=== PATIENT | male | born 1940 | race Caucasian/White ===

== ENCOUNTER 2024-06-24 21:56 | Inpatient (IN) | payer MEDICARE, OTHER ==
[~2024-06-24] VITALS: Ht 165.1 cm; Wt 80.7 kg
[2024-06-24 22:12] VITALS: PULSE 83; RESP 12; O2SAT 92
[2024-06-24] MEDS: ONDANSETRON HCL 4 MG/2 ML VIAL IV ONE (22:40)
[2024-06-24] MEDS: SODIUM CHLORIDE 0.9% 1,000 ML IV ONE (22:41)
[2024-06-24] MEDS: MORPHINE SULFATE 4 MG/ML SYR/VIAL IV ONE (22:41)
[2024-06-24 22:45] LABS: Basophils # (auto) 0.1 10 ^3/uL (0-0.2); Basophils % (auto) 0.6 % (0.0-2.0); Eosinophils # (auto) 0.2 10 ^3/uL (0-0.8); Eosinophils % (auto) 1.9 % (0.0-7.0); Hematocrit 35.6 % (41.0-53.0); Hemoglobin 12.2 g/dL (13.5-17.5); Lymphocytes # (auto) 0.9 10 ^3/uL (0.4-5.4); Lymphocytes % (auto) 11.1 % (10.0-50.0); Mean Corpuscular Hemoglobin 31.8 pg (28.0-32.0); Mean Corpuscular Hgb Conc. 34.3 g/dL (32.0-36.0); Mean Corpuscular Volume 92.6 fL (80.0-100.0); Monocytes # (auto) 0.8 10 ^3/uL (0-1.3); Neutrophils # (auto) 6.5 10 ^3/uL (1.6-8.6); Neutrophils % (auto) 77.4 % (37.0-80.0); Platelet Count (auto) 225 10^3/uL (140-450); Red Blood Cells 3.84 10^6/uL (4.5-5.90); White Blood Cell 8.3 10^3/uL (4.4-10.8)
[2024-06-24 23:03] LABS: Alanine Aminotransferase 19 U/L (7-40); Albumin 3.9 g/dL (3.2-4.8); Alkaline Phosphatase 55 U/L (46-116); Anion Gap 7 (5-15); Aspartate Aminotransferase 25 U/L (13-40); BUN/Creatinine Ratio 10.9 (10.0-20.0); Blood Urea Nitrogen 15 mg/dL (9-23); Calcium 9.1 mg/dL (8.7-10.4); Carbon Dioxide 22 mmol/L (20-31); Chloride 110 mmol/L (98-107); Glucose 149 mg/dL (74-106); Potassium 3.8 mmol/L (3.5-5.1); Sodium 139 mmol/L (136-145)
[2024-06-24 23:04] LABS: Bilirubin, Total 0.4 mg/dL (0.2-1.0); Total Protein 5.9 g/dL (5.7-8.2)
[2024-06-24] MEDS: IOHEXOL 300 MG/ML 100ML BOTTLE IJ ONE (23:39)
[2024-06-25] MEDS: dilTIAZem 25 MG/5 ML VIAL IV ONE (00:56)
[2024-06-25] MEDS: dilTIAZem 125mg/125ml BAG KIT 125 ML IV ONE (01:00)
[2024-06-25] MEDS: SODIUM CHLORIDE 0.9% 500 ML IV ONE (02:00)
[2024-06-25] MEDS: SODIUM CHLORIDE 0.9% 1,000 ML IV ONE (02:52)
[2024-06-25] MEDS ORDERED: HYDROcodone-ACET 5/325MG TAB PO PRN (04:00)
[2024-06-25] MEDS ORDERED: ACETAMINOPHEN 325 MG TAB PO PRN (04:00)
[2024-06-25] MEDS ORDERED: ONDANSETRON HCL 4 MG/2 ML VIAL IV PRN (04:00)
[2024-06-25 04:13] LABS: Basophils # (auto) 0.1 10 ^3/uL (0-0.2); Eosinophils # (auto) 0 10 ^3/uL (0-0.8); Eosinophils % (auto) 0.5 % (0.0-7.0); Lymphocytes # (auto) 0.9 10 ^3/uL (0.4-5.4); Lymphocytes % (auto) 14.4 % (10.0-50.0); Mean Corpuscular Hemoglobin 32.1 pg (28.0-32.0); Mean Corpuscular Hgb Conc. 34.4 g/dL (32.0-36.0); Mean Corpuscular Volume 93.2 fL (80.0-100.0); Monocytes # (auto) 0.5 10 ^3/uL (0-1.3); Monocytes % (auto) 8.4 % (0.0-12.0); Neutrophils # (auto) 4.7 10 ^3/uL (1.6-8.6); Neutrophils % (auto) 75.7 % (37.0-80.0); Platelet Count (auto) 191 10^3/uL (140-450); Red Blood Cells 3.44 10^6/uL (4.5-5.90); Red Cell Distribution Width 14.2 % (11.8-14.3); White Blood Cell 6.2 10^3/uL (4.4-10.8)
[2024-06-25 04:32] LABS: Alanine Aminotransferase 14 U/L (7-40); Albumin 3.5 g/dL (3.2-4.8); Alkaline Phosphatase 49 U/L (46-116); Anion Gap 4 (5-15); Aspartate Aminotransferase 14 U/L (13-40); BUN/Creatinine Ratio 10.3 (10.0-20.0); Bilirubin, Total 0.5 mg/dL (0.2-1.0); Blood Urea Nitrogen 14 mg/dL (9-23); Calcium 7.9 mg/dL (8.7-10.4); Carbon Dioxide 23 mmol/L (20-31); Chloride 114 mmol/L (98-107); Glucose 138 mg/dL (74-106); Potassium 4.3 mmol/L (3.5-5.1); Sodium 141 mmol/L (136-145); Total Protein 5.1 g/dL (5.7-8.2)
[2024-06-25] MEDS: metroNIDAZOLE 500MG/100ML 100 ML IV SCH (05:56)
[2024-06-25] MEDS: SODIUM CHLORIDE 0.9% 1,000 ML IV SCH (05:58)
[2024-06-25] MEDS ORDERED: NITROGLYCERIN 0.4 MG SL TAB SL PRN (06:45)
[2024-06-25] MEDS ORDERED: MORPHINE SULFATE INJ 2 MG/ml SYRG IV PRN (06:45)
[2024-06-25 07:30] VITALS: PULSE 81; RESP 19; O2SAT 94
[2024-06-25 07:36] LABS: Urine Bacteria None Seen /hpf (None Seen)
[2024-06-25 07:52] LABS: Urine Blood 3+ /uL (Negative); Urine Clarity Turbid (Clear); Urine Color Light-Orange (Yellow); Urine Mucus FEW (None Seen); Urine Protein, UAD 2+ (Negative); Urine Sperm PRESENT /hpf (None Seen); Urine Urobilinogen Normal (Negative); Urine WBC 187 /hpf (0 - 3)
[2024-06-25 08:38] LABS: Urine Specific Gravity > 1.050 (1.001-1.035)
[2024-06-25] MEDS: ALBUMIN 25% 100 ML IV ONE (08:46)
[2024-06-25] MEDS ORDERED: dilTIAZem 120MG ER CAP PO SCH (10:00)
[2024-06-25 10:33] LABS: Magnesium 1.6 mg/dL (1.6-2.6)
[2024-06-25] MEDS: ASPirin 81 mg TAB PO SCH (10:41)
[2024-06-25] MEDS: FAMOTIDINE (10MG/ML) 2ML VL IV SCH (10:41)
[2024-06-25] MEDS: ENOXAPARIN SOD 80 MG/0.8ML SYRINGE SC SCH (10:42)
[2024-06-25] MEDS: METOPROLOL TARTRATE 25 MG TAB PO SCH (10:53)
[2024-06-25] MEDS: MAGNESIUM SULFATE 1GM/100ML 100 ML IV ONE (11:43)
[2024-06-25 13:27] VITALS: BP 131/70; PULSE 121; RESP 16; TEMP 98.8; O2SAT 94
[2024-06-25] MEDS ORDERED: ATOR40TA52 PO (17:01)
[2024-06-25] MEDS ORDERED: OMEP20TA PO (17:07)
[2024-06-25] MEDS ORDERED: TAMS0.4C39 PO (17:07)
[2024-06-25] MEDS ORDERED: BUSP10TA90 PO (17:09)
[2024-06-25] MEDS ORDERED: CILO100T3 PO (17:10)
[2024-06-25] MEDS ORDERED: SERT-206 PO (17:10)
[2024-06-25] MEDS ORDERED: ATEN50TA PO (17:11)
[2024-06-25] MEDS ORDERED: DABI150C5 PO (17:12)
[2024-06-25] MEDS ORDERED: DONE5TAB80 PO (17:13)
[2024-06-25] MEDS: LORazepam 2MG/ML-1ML VIAL IV ONE (17:21)
[2024-06-25 20:00] VITALS: PULSE 78; PULSE 88
[2024-06-25] MEDS ORDERED: HALOPERIDOL LACTATE 5 MG/ML INJ VIAL IM PRN (20:45)
[2024-06-25 21:00] VITALS: BP 173/94; PULSE 128; RESP 21; TEMP 98.6; O2SAT 94
[2024-06-25] MEDS: HALOPERIDOL LACTATE 5 MG/ML INJ VIAL IM PRN (21:13)
[2024-06-25] MEDS: MORPHINE SULFATE INJ 2 MG/ml SYRG IV PRN (23:25)
[2024-06-26] VITALS (11 sets, daily range): BP systolic 123–185; BP diastolic 87–110; PULSE 70–99; RESP 18–19; TEMP 97.8–98.3; O2SAT 90–98
[2024-06-26 07:32] LABS: Basophils # (auto) 0.1 10 ^3/uL (0-0.2); Basophils % (auto) 1.9 % (0.0-2.0); Eosinophils # (auto) 0.2 10 ^3/uL (0-0.8); Eosinophils % (auto) 4.1 % (0.0-7.0); Hematocrit 32.9 % (41.0-53.0); Hemoglobin 11.3 g/dL (13.5-17.5); Lymphocytes # (auto) 0.8 10 ^3/uL (0.4-5.4); Lymphocytes % (auto) 17.8 % (10.0-50.0); Mean Corpuscular Hemoglobin 31.9 pg (28.0-32.0); Mean Corpuscular Hgb Conc. 34.4 g/dL (32.0-36.0); Mean Corpuscular Volume 92.9 fL (80.0-100.0); Monocytes # (auto) 0.4 10 ^3/uL (0-1.3); Monocytes % (auto) 9.7 % (0.0-12.0); Neutrophils % (auto) 66.5 % (37.0-80.0); Nucleated Red Blood Cells % 0.1 %; Platelet Count (auto) 191 10^3/uL (140-450); Red Blood Cells 3.54 10^6/uL (4.5-5.90); Red Cell Distribution Width 14.3 % (11.8-14.3); White Blood Cell 4.6 10^3/uL (4.4-10.8)
[2024-06-26 07:46] LABS: Alanine Aminotransferase 15 U/L (7-40); Albumin 3.8 g/dL (3.2-4.8); Alkaline Phosphatase 51 U/L (46-116); Anion Gap 6 (5-15); Aspartate Aminotransferase 21 U/L (13-40); BUN/Creatinine Ratio 12.5 (10.0-20.0); Bilirubin, Total 0.5 mg/dL (0.2-1.0); Blood Urea Nitrogen 11 mg/dL (9-23); Calcium 9.1 mg/dL (8.7-10.4); Carbon Dioxide 23 mmol/L (20-31); Chloride 116 mmol/L (98-107); Glucose 90 mg/dL (74-106); Potassium 3.5 mmol/L (3.5-5.1); Sodium 145 mmol/L (136-145); Total Protein 5.5 g/dL (5.7-8.2)
[2024-06-26] MEDS: hydrALAZINE HCL 20 MG/ML VL IV ONE ×2 (08:58→23:49)
[2024-06-26] MEDS: ALBUTEROL SULF 2.5 MG/0.5ML(0.5%) NEB SOLN NEB ONE (12:00)
[2024-06-26] MEDS: ALBUTEROL SULF 2.5 MG/0.5ML(0.5%) NEB SOLN ONE (12:00)
[2024-06-26] MEDS: IPRATROPIUM BROM 0.5 MG/2.5ML INH SOL NEB ONE (12:00)
[2024-06-26] MEDS: IPRATROPIUM BROM 0.5 MG/2.5ML INH SOL ONE (12:08)
[2024-06-26] MEDS: SERTRALINE HCL 50 MG TAB PO ONE (17:12)
[2024-06-27] VITALS (8 sets, daily range): BP systolic 122–187; BP diastolic 72–97; PULSE 69–86; RESP 18–20; TEMP 97.9–98.3; O2SAT 93–99
[2024-06-27] MEDS: cloNIDine HCL 0.1 MG TAB PO ONE (02:08)
[2024-06-27] MEDS: amLODIPine BESYLATE 5 MG TAB PO SCH (09:11)
[2024-06-27] MEDS: SERTRALINE HCL 50 MG TAB PO SCH (09:11)
[2024-06-27] MEDS: METOPROLOL SUCCINATE XL 50 MG TAB PO SCH (09:12)
[2024-06-27] MEDS ORDERED: METOPROLOL TARTRATE 25 MG TAB PO SCH (10:00)
[2024-06-27 15:20] LABS: Basophils # (auto) 0 10 ^3/uL (0-0.2); Basophils % (auto) 0.2 % (0.0-2.0); Eosinophils # (auto) 0.1 10 ^3/uL (0-0.8); Hematocrit 38.4 % (41.0-53.0); Hemoglobin 13.2 g/dL (13.5-17.5); Lymphocytes # (auto) 0.9 10 ^3/uL (0.4-5.4); Lymphocytes % (auto) 17.8 % (10.0-50.0); Mean Corpuscular Hemoglobin 31.6 pg (28.0-32.0); Mean Corpuscular Hgb Conc. 34.4 g/dL (32.0-36.0); Monocytes # (auto) 0.6 10 ^3/uL (0-1.3); Monocytes % (auto) 12.1 % (0.0-12.0); Neutrophils # (auto) 3.4 10 ^3/uL (1.6-8.6); Neutrophils % (auto) 67.9 % (37.0-80.0); Platelet Count (auto) 236 10^3/uL (140-450); Red Blood Cells 4.18 10^6/uL (4.5-5.90); Red Cell Distribution Width 14.1 % (11.8-14.3); White Blood Cell 5.1 10^3/uL (4.4-10.8)
[2024-06-27 15:30] LABS: Chloride 106 mmol/L (98-107); Potassium 3.5 mmol/L (3.5-5.1); Sodium 137 mmol/L (136-145)
[2024-06-27 15:31] LABS: Anion Gap 6 (5-15); Calcium 9.4 mg/dL (8.7-10.4); Carbon Dioxide 25 mmol/L (20-31)
[2024-06-27 15:36] LABS: BUN/Creatinine Ratio 13.4 (10.0-20.0); Blood Urea Nitrogen 13 mg/dL (9-23); Glucose 103 mg/dL (74-106); Magnesium 1.6 mg/dL (1.6-2.6)
[2024-06-27] MEDS ORDERED: METR-344 PO (16:48)
== END 2024-06-27 18:15 | disposition home or self-care (01) | DRG 388 ==
LOC: ER 21:56 → EDBD 21:56 → TELE 06-25 06:39 → TELE-E-ADS 06-25 13:01 → TELE-WESTW 06-26 18:17
PROVIDERS: ADMIT Nurse Practitioner Family; ATTEND Student in an Organized Health Care Education/Training Program
PROC: 0D9670Z Drainage of Stomach with Drainage Device, Via Natural or Artificial Opening (ICD-10-PCS; principal; 2024-06-25)
DX: K56.600 Partial intestinal obstruction, unspecified as to cause (principal); N17.0 Acute kidney failure with tubular necrosis; F03.911 Unspecified dementia, unspecified severity, with agitation; N39.0 Urinary tract infection, site not specified; I48.19 Other persistent atrial fibrillation; J81.1 Chronic pulmonary edema; R57.9 Shock, unspecified; I16.0 Hypertensive urgency; K52.9 Noninfective gastroenteritis and colitis, unspecified; N40.0 Benign prostatic hyperplasia without lower urinary tract symptoms; R73.03 Prediabetes; I10 Essential (primary) hypertension; E78.5 Hyperlipidemia, unspecified; F03.90 Unspecified dementia, unspecified severity, without behavioral disturbance, psychotic disturbance, mood disturbance, and anxiety; F17.200 Nicotine dependence, unspecified, uncomplicated; Z79.02 Long term (current) use of antithrombotics/antiplatelets; Z82.49 Family history of ischemic heart disease and other diseases of the circulatory system; Z79.899 Other long term (current) drug therapy
CPT/HCPCS: 36415; 80048; 80053; 80061; 81001; 83036; 83735; 83880; 84100; 84443; 85025; 93005; 93306; 94640; 99291; G0378; J2405; J3490; P9047